=== PATIENT | male | born 1975 | race Caucasian/White ===

== ENCOUNTER 2020-03-23 22:25 | Inpatient (IN) | payer OTHER ==
[~2020-03-23] VITALS: Ht 190.5 cm; Wt 131.7 kg
[2020-03-23 22:27] VITALS: BP 138/80
[2020-03-23 22:48] LABS: ABSOLUTE NEUTROPHILS 11.8 thou/uL (1.4-8.2); BASOPHILS 0.3 % (0.0-2.0); EOSINOPHILS 1.2 % (0.0-3.0); HEMATOCRIT 47.6 % (42.0-52.0); HEMOGLOBIN 15.8 gm/dL (14.0-18.0); LYMPHOCYTES 15.4 % (24.0-44.0); MCH 27.7 pg (26.0-34.0); MCHC 33.2 g/dL (28.0-37.0); MCV 83.4 fL (80.0-100.0); MONOCYTES 6.5 % (1.0-8.0); PLATELET COUNT 155 thou/uL (150-400); POLYS 76.6 % (36.0-66.0); RDW 16.8 % (10.5-14.5); WBC 15.4 thou/uL (4.0-11.0)
[2020-03-23 23:00] LABS: ANION GAP 10 mmol/L (7-16); BUN 7 mg/dL (7-18); CALCIUM 8.5 mg/dL (8.5-10.1); CHLORIDE 101 mmol/L (98-107); CO2 24 mmol/L (21-32); CREATININE 0.9 mg/dL (0.7-1.3); GLUCOSE 87 mg/dL (74-106); SODIUM 135 mmol/L (136-145)
[2020-03-23 23:08] LABS: POTASSIUM 2.9 mmol/L (3.5-5.1)
[2020-03-23 23:11] LABS: ALBUMIN 3.4 g/dL (3.4-5.0); LIPASE 135 U/L (73-393); SGOT 27 U/L (15-37); SGPT 30 U/L (30-65); TOTAL BILIRUBIN 0.6 mg/dL (0.2-1.0); TOTAL PROTEIN 7.6 g/dL (6.4-8.2); TROPONIN-I <0.06 ng/mL (<0.06)
[2020-03-23] MEDS ORDERED: ZESTRIL20 MG PO (23:50)
[2020-03-23] MEDS ORDERED: ASA81BEC PO (23:50)
[2020-03-23] MEDS ORDERED: REXULTI0.25 MG PO (23:51)
[2020-03-23] MEDS ORDERED: XARELTO2.5 MG PO (23:51)
[2020-03-23] MEDS ORDERED: LIPITOR40 MG PO (23:51)
[2020-03-23] MEDS ORDERED: LEXAPRO 10 MG T10 M2 PO (23:52)
[2020-03-23] MEDS ORDERED: OXYCODONE HCL E20 MG PO (23:52)
[2020-03-23] MEDS ORDERED: LYRICA150 MG PO (23:53)
[2020-03-23] MEDS ORDERED: MULTI VITAMIN1 EACH PO (23:53)
[2020-03-23] MEDS ORDERED: SOMA250 MG PO (23:53)
[2020-03-23] MEDS ORDERED: MILK THISTLE1 GM PO (23:54)
[2020-03-23] MEDS ORDERED: OMEPRAZOLE40 MG PO (23:55)
[2020-03-24] VITALS (9 sets, daily range): BP systolic 116–144; BP diastolic 78–97
--- NOTE | 2020-03-24 01:02 | NUR ---
FIRST ATTEMPT AT REPORT. "NURSE IS BUSY RIGHT NOW WILL CALL BACK"
[2020-03-24 02:42] LABS: HEMATOCRIT 45.2 % (42.0-52.0); HEMOGLOBIN 14.9 gm/dL (14.0-18.0); MCH 27.6 pg (26.0-34.0); MCHC 32.8 g/dL (28.0-37.0); RBC 5.39 mil/uL (4.50-6.00); RDW 16.9 % (10.5-14.5); WBC 12.8 thou/uL (4.0-11.0)
[2020-03-24 02:47] LABS: ANION GAP 9 mmol/L (7-16); BUN 8 mg/dL (7-18); CALCIUM 8.1 mg/dL (8.5-10.1); CHLORIDE 103 mmol/L (98-107); CO2 26 mmol/L (21-32); CREATININE 0.9 mg/dL (0.7-1.3); GLUCOSE 82 mg/dL (74-106); POTASSIUM 3.4 mmol/L (3.5-5.1); SODIUM 138 mmol/L (136-145)
[2020-03-24 02:56] LABS: CHOLESTEROL 115 mg/dL (<200); HDL CHOLESTEROL 30 mg/dL (>40); LDL CHOLESTEROL 61 mg/dL (<100); SERUM ASSESSMENT Clear; TC:HDL 3.8 Ratio (Not establshd); TRIGLYCERIDE 123 mg/dL (<150); TROPONIN-I <0.06 ng/mL (<0.06); VLDL 25 mg/dL (<40)
[2020-03-24 03:00] LABS: APTT 33.6 Seconds (24.5-32.8); INR 1.1; PROTIME 11.2 Seconds (9.3-11.4)
[2020-03-24] MEDS ORDERED: LASIX 40 MG TAB40 MG PO (03:52)
--- NOTE | 2020-03-24 07:52 | NUR ---
0157: ADMITTED FROM ER PER CART. STATES CHEST PAIN NEVER WENT AWAY. STATES HURTS DEEP DOWN IN MID CHEST AND WHEN TAKES BREATH IT IS WORSE. IT RADIATES TO LEFT SHOULDER AND DOWN ARM. ALL THOSE AREAS ARE NUMB BUT CAN FEEL TOUCH. MOROPHINE GIVEN WITH MINIMAL RELIEF. NTG GIVEN X3 WITH NO RELIEF STATING THAT IT NEVER HELPS AND HE COULD TAKE THE WHOLE BOTTLE AND IT WOULDNT HELP. NOTIFIED SHARMIN SALCIDO/DR. SWARTZ AND ORDERED FENTYNAL 50 MCG. PATIENT FELL ASLEEP PAST 15 MINUTES AND STATES HE IS FINE WITHOUT COMPLAINTS. ADMISSION PROCESS COMPLETED. 0650 CONSULT CALLED TO CARDIOLOGY. CONTINUE TO ASSES CLOSELY,. CHECKED ON PATIENT AND HE IS SLEEPING AT THIS TIME. TELEMETRY SHOWS SR.
--- NOTE | 2020-03-24 08:49 | EKG ---
[facility] [place] [address] ELECTROCARDIOGRAM REPORT Name: KERWIN JEONG Room #: 212- ADM IN M.R.#: [id number] Admission: 03/24/20 Attend Phys: Jones Grande MD Discharge: Date of : 75 Report #: [id number] THIS REPORT FOR: cc: Diana Benson MD, Amie MD Lundgren,Noel Brown MD [facility] THIS REPORT FOR: //name// [facility] ED Test Date: 2020-03-23 Test Time: 22:24:07 Pat Name: KERWIN JEONG Department: Room: [facility] Gender: M Vegetable Handler: : 1975 Requested By: Rolando Lopez Order Number: [id number] MD: Noel Michaels Measurements Intervals [place] Rate: 71 P: 65 OK: 151 QRS: 14 QRSD: 115 T: 50 QT: 424 QTc: 461 Interpretive Statements Sinus rhythm Right ventricular conduction delay No previous ECG available for comparison Electronically Signed On 03-24-2020 8:48:47 CDT by Noel Michaels [email or web address] <ELECTRONICALLY SIGNED> By: Noel Michaels MD, FAC 03/24/20 0848 23 23 Noel Michaels MD, [facility] /EPI
--- NOTE | 2020-03-24 13:03 | NUR ---
ASSUMED CARE PT SHIFT CHANGE. ASSSESSMENT CHARTED. MEDS GIVEN PER MAR. PT ALERT AND ORIENTE.D VSS. C/O CHEST PAIN. PAIN MEDS GIVEN PER ORDERS. PT TO HAVE STRESS TEST TODAY. PT WENT DOWN FOR STRESS TEST. NUC MED TECH INFORMS RN THAT PT REFUSES STRESS TEST AND WANTS TO LEAVE AMA STATING UPSET WITH PHYSICIANS. CARDILOLOGY NOTIFIED. HOSPITALIST NOTIFIED. RN OFFERS TO SPEAK TO SLEEVE BASTER PATIENT CARE ASSOCIATE REGARDING DISLIKE FOR HOSPITAL STAY-PT REFUSES. IV REMOVED.TELE OFF. PT LEFT UNIT WITH ALL BELONGINGS.
[2020-03-25 03:06] LABS: GLYCOHEMOGLOBIN (HGB A1C) 5.3 % (4.8-5.6)
--- NOTE | 2020-03-26 13:52 | NUR ---
Patient was notified by phone on 03/25/20 at 8404 of positive Covid results and education provided. Dr. Grande informed patient positive and agreed patient to be notified of results.
== END 2020-03-24 13:00 | disposition left against medical advice (07) | DRG 303 ==
LOC: ER 22:25 → 2N 03-24 00:06 → EROBS 03-24 00:06 → 2N 03-24 01:25
PROVIDERS: Emergency Medicine; Nurse Practitioner Family; ADMIT Hospitalist; ATTEND Hospitalist
DX: I25.110 Atherosclerotic heart disease of native coronary artery with unstable angina pectoris (principal); F17.210 Nicotine dependence, cigarettes, uncomplicated; J44.9 Chronic obstructive pulmonary disease, unspecified; I10 Essential (primary) hypertension; E78.5 Hyperlipidemia, unspecified; M54.5 Low back pain; G89.29 Other chronic pain; F32.9 Major depressive disorder, single episode, unspecified; Z79.82 Long term (current) use of aspirin; Z79.891 Long term (current) use of opiate analgesic; Z79.899 Other long term (current) drug therapy; Z88.8 Allergy status to other drugs, medicaments and biological substances; Z91.018 Allergy to other foods; I25.2 Old myocardial infarction; Z95.5 Presence of coronary angioplasty implant and graft
CPT/HCPCS: 10081